=== PATIENT | female | born 1990 | race Caucasian/White ===

== ENCOUNTER 2017-10-25 22:39 | Emergency (ER) | payer MEDICAID, OTHER ==
[~2017-10-25] VITALS: Ht 165.1 cm; Wt 63.0 kg
[2017-10-25 23:19] VITALS: BP 158/102; PULSE 67; RESP 20; TEMP 98.3; O2SAT 97
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
[2017-10-26] MEDS ORDERED: ROBA500T PO (00:55)
[2017-10-26] MEDS ORDERED: IBUP1TAB7 PO (00:55)
[2017-10-26] MEDS ORDERED: ORPHENADRINE INJ 60 MG/2 ML AMP IM ONE (01:00)
[2017-10-26] MEDS ORDERED: KETOROLAC TROMETHAMINE 60 MG/2 ML (IM) VIAL IM ONE (01:00)
== END 2017-10-26 01:17 | disposition home or self-care (01) ==
LOC: NEPD 22:39
DX: S16.1XXA Strain of muscle, fascia and tendon at neck level, initial encounter (principal); V89.2XXA Person injured in unspecified motor-vehicle accident, traffic, initial encounter
CPT/HCPCS: 96372; 99283; J1885; J2360

== ENCOUNTER 2017-11-08 12:18 | Inpatient (IN) | payer SELFPAY ==
[2017-11-08] VITALS (7 sets, daily range): BP systolic 113–171; BP diastolic 58–99; PULSE 102–118; RESP 18–24; TEMP 98.8; O2SAT 100
[~2017-11-08] VITALS: Ht 162.6 cm; Wt 63.0 kg
[~2017-11-08 12:18] MED LIST: IBUP1TAB7 PO; ROBA500T PO
[2017-11-08] MEDS ORDERED: SODIUM CHLOR 0.9% 1000 ML INJ 1,000 ML IV ONE ×4 (12:25→13:30)
[2017-11-08] MEDS ORDERED: SODIUM CHLOR 0.9% 1000 ML INJ 1,000 ML IV SCH (12:29)
[2017-11-08] MEDS ORDERED: DEXT 5%-NACL 0.9% 1000 ML INJ 1,000 ML IV SCH (12:29)
[2017-11-08] MEDS ORDERED: SODIUM BICARBONATE 8.4% SOLN 50 MEQ/50 ML VIAL IV PUSH PRN ×4 (12:30→14:45)
[2017-11-08] MEDS ORDERED: SODIUM CHLORIDE 0.9% FLUSH 10 ML FLUSH IVF PRN (12:30)
[2017-11-08] MEDS ORDERED: INSULIN REGULAR (IV INFUSION) 100 UNITS in SODIUM CHLORIDE 0.9% INJ 99 ML IV PRN (12:30)
[2017-11-08] MEDS ORDERED: POTASSIUM CHLOR 20 MEQ PREMIX 100 ML IV PRN ×11 (12:30→14:45)
[2017-11-08] MEDS ORDERED: POTASSIUM CHLOR 40 MEQ PREMIX 100 ML IV PRN ×4 (12:30→14:45)
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
[2017-11-08 12:48] LABS: AUTOMATED NEUTROPHIL # 33.2 TH/MM3 (1.8-7.7); BASOPHIL # 0.1 TH/MM3 (0-0.2); BASOPHIL % 0.3 % (0.0-2.0); HEMATOCRIT 49.1 % (35.0-46.0); HEMOGLOBIN 15.8 GM/DL (11.6-15.3); LYMPH % 3.4 % (9.0-44.0); LYMPHOCYTE # 1.3 TH/MM3 (1.0-4.8); MEAN CELL VOLUME 96.7 FL (80.0-100.0); MEAN CORPUSCULAR HGB CONC 32.1 % (32.0-36.0); MONO % 8.8 % (0.0-8.0); MONOCYTE # 3.3 TH/MM3 (0-0.9); NEUT % 87.5 % (16.0-70.0); PLATELET COUNT 324 TH/MM3 (150-450); RED BLOOD COUNT 5.08 MIL/MM3 (4.00-5.30); RED CELL DISTRIBUTION WIDTH 12.9 % (11.6-17.2); WHITE BLOOD COUNT 37.9 TH/MM3 (4.0-11.0)
[2017-11-08 13:06] LABS: ALBUMIN 4.5 GM/DL (3.4-5.0); ALT (GPT) 27 U/L (10-53); AST (GOT) 12 U/L (15-37); BICARBONATE LESS THAN 5.0 MEQ/L (21.0-32.0); BLOOD UREA NITROGEN 18 MG/DL (7-18); CHLORIDE 95 MEQ/L (98-107); CREATININE 1.65 MG/DL (0.50-1.00); GLOMERULAR FILTRATION RATE 37 ML/MIN (>89); SODIUM (NA) 127 MEQ/L (136-145)
[2017-11-08 13:18] LABS: ALKALINE PHOSPHATASE 97 U/L (45-117); TOTAL BILIRUBIN ADULT 0.4 MG/DL (0.2-1.0); TOTAL PROTEIN 8.5 GM/DL (6.4-8.2); TROPONIN I LESS THAN 0.02 NG/ML (0.02-0.05)
[2017-11-08 13:20] LABS: BANDS 3 % (0-6); LYMPHOCYTES 5 % (9-44); MONOCYTES 6 % (0-8); NEUTROPHIL # MANUAL DIFF 33.7 TH/MM3 (1.8-7.7); POLYS (SEG NEUTROPHILS) 86 % (16-70)
[2017-11-08 13:36] LABS: GLUCOSE,RANDOM 666 MG/DL (74-106)
[2017-11-08 14:23] LABS: BACTERIA, URINE RARE /hpf; BILIRUBIN, URINE NEG (NEG); BLOOD, URINE MOD (NEG); GLUCOSE,URINE >=500 mg/dL (NEG); HYALINE CAST, URINE 1 /lpf (RARE); KETONE, URINE 80 OR GREATER mg/dL (NEG); MUCUS URINE FEW /lpf (OCC); NITRITE,URINE NEG (NEG); SQUAMOUS EPITHELIAL CELL URINE <1 /hpf (0-5); URINE COLOR YELLOW (YELLW/STRAW); URINE LEUKOCYTE ESTERASE NEG (NEG)
[2017-11-08] MEDS: SODIUM CHLOR 0.9% 1000 ML INJ 1,000 ML IV SCH ×3 (14:43→22:43)
[2017-11-08] MEDS ORDERED: NURSING INFORMATION XX SCH ×2 (14:45→15:00)
[2017-11-08] MEDS ORDERED: CHLORHEXIDINE GLUCONATE 2 % 1 PACK (2 CLOTHS) TOP PRN (14:45)
--- NOTE | 2017-11-08 14:45 | RADRPT ---
EXAM DATE: 11/08/2017 2:05 PM EDT AGE/SEX: 27 years / Female INDICATIONS: Shortness of breath. CLINICAL DATA: This is the patient's initial encounter. Patient reports that signs and symptoms have been present for 1 day and indicates a pain score of 0/10. MEDICAL/SURGICAL HISTORY: None. None. COMPARISON: No prior exams available for comparison. FINDINGS: A single AP view of the chest demonstrates the lungs to be symmetrically aerated without evidence of mass, infiltrate or effusion. The cardiomediastinal contours are unremarkable. Osseous structures a re intact. CONCLUSION: No acute cardiopulmonary findings. Electronically signed by: Erich Wright MD 11/08/2017 2:44 PM EDT
[2017-11-08] MEDS ORDERED: RESP: ALBUTEROL 2.5 MG/IPRATROPIUM 0.5 MG NEB (PRN) INH (15:00)
[2017-11-08] MEDS ORDERED: MAGNESIUM HYDROXIDE SUSP 30 ML CUP PO PRN (15:00)
[2017-11-08] MEDS ORDERED: BISACODYL 10 MG SUPP RECTAL PRN (15:00)
[2017-11-08] MEDS ORDERED: INSULIN HUMAN REGULAR 1,000 UNITS/10 ML VIAL IV PUSH ONE ×2 (15:00→15:30)
[2017-11-08] MEDS ORDERED: SENNOSIDES 8.6 MG TAB PO PRN (15:00)
[2017-11-08] MEDS ORDERED: ACETAMINOPHEN 325 MG TAB PO PRN (15:00)
[2017-11-08] MEDS ORDERED: LACTULOSE SYRUP 20 GM/30 ML CUP PO PRN (15:00)
[2017-11-08] MEDS: INSULIN REGULAR (IV INFUSION) 100 UNITS in SODIUM CHLORIDE 0.9% INJ 99 ML IV PRN (15:14)
--- NOTE | 2017-11-08 15:40 | EKG ---
Date Performed: 11/08/2017 Time Performed: 11:17:58 PTAGE: 27 years EKG: SINUS TACHYCARDIA POSSIBLE LEFT ATRIAL ENLARGEMENT ABNORMAL RHYTHM ECG NO PREVIOUS TRACING DOCTOR: Morales Juarez Interpretating Date/Time 11/08/2017 15:38:51
--- NOTE | 2017-11-08 16:26 | HHI.HP ---
HPI Service Critical Care Medicine Primary Care Physician No Primary Care Physician Admission Diagnosis DKA Diagnosis: Travel History International Travel<30 Days: No Contact w/Intl Traveler <30 Da: No Traveled to Known Affected Are: No History of Present Illness HPI This is a 27-year-old female that presented to the ED with altered mental status. Laboratory and imaging studies revealed a significant leukocytosis and a beta hydroxybutyrate elevation of 10.93 the patient's glucose level was noted to be 444 and lactate level of 4.9.. The patient was bolused in the ED with 4 L of normal saline. An insulin drip was initiated in the ED.Upon my evaluation of the patient, easily arousable, opening eyes tracking but not responding to questions. Family at bedside,no history of diabetes per their report. The patient was admitted to ICU. ABG is pending. History PFSH Past Medical History Immunizations Current: Yes ?: Unknown Social History Alcohol Use: No Tobacco Use: No Substance Use: No Allergies-Medications Allergies-Medications (Allergen,Severity, Reaction): Coded Allergies: bee venom protein (honey bee) (Verified Allergy, Severe, Anaphylaxis, 10/25) Reported Meds & Prescriptions Reported Meds & Active Scripts Active Ibuprofen 800 Mg Tab 800 Mg PO Q8H PRN Robaxin (Methocarbamol) 500 Mg Tab 500 Mg PO QID PRN Physical Exam Vital Signs Vital Signs Date Time Temp Pulse Resp B/P (MAP) Pulse Ox O2 Delivery O2 Flow Rate FiO2 11/08/17 15:51 110 24 113/58 (76) 100 Nasal Cannula 2.00 11/08/17 13:33 102 24 128/68 (88) 100 Nasal Cannula 2.00 11/08/17 12:32 100 Room Air 11/08/17 12:28 109 98 11/08/17 12:20 118 18 171/99 (123) 100 Laboratory Laboratory Tests Test 11/08/17 12:25 11/08/17 12:38 11/08/17 15:04 White Blood Count 37.9 Red Blood Count 5.08 Hemoglobin 15.8 Hematocrit 49.1 Mean Corpuscular Volume 96.7 Mean Corpuscular Hemoglobin 31.0 Mean Corpuscular Hemoglobin Concent 32.1 Red Cell Distribution Width 12.9 Platelet Count 324 Mean Platelet Volume 11.0 Neutrophils (%) (Auto) 87.5 Lymphocytes (%) (Auto) 3.4 Monocytes (%) (Auto) 8.8 Eosinophils (%) (Auto) 0.0 Basophils (%) (Auto) 0.3 Neutrophils # (Auto) 33.2 Lymphocytes # (Auto) 1.3 Monocytes # (Auto) 3.3 Eosinophils # (Auto) 0.0 Basophils # (Auto) 0.1 CBC Comment AUTO DIFF Differential Total Cells Counted 100 Neutrophils % (Manual) 86 Band Neutrophils % 3 Lymphocytes % 5 Monocytes % 6 Neutrophils # (Manual) 33.7 Differential Comment FINAL DIFF MANUAL Platelet Estimate NORMAL Platelet Morphology Comment NORMAL Blood Urea Nitrogen 18 Creatinine 1.65 Random Glucose 666 Total Protein 8.5 Albumin 4.5 Calcium Level 8.0 Alkaline Phosphatase 97 Aspartate Amino Transf (AST/SGOT) 12 Alanine Aminotransferase (ALT/SGPT) 27 Total Bilirubin 0.4 Sodium Level 127 Potassium Level 4.1 Chloride Level 95 Carbon Dioxide Level LESS THAN 5.0 Anion Gap 27 Estimat Glomerular Filtration Rate 37 Troponin I LESS THAN 0.02 B-Hydroxybutyrate 10.93 Urine Color YELLOW Urine Turbidity HAZY Urine pH 5.0 Urine Specific [place] 1.023 Urine Protein 100 Urine Glucose (UA) >=500 Urine Ketones 80 OR GREATER Urine Occult Blood MOD Urine Nitrite NEG Urine Bilirubin NEG Urine Leukocyte Esterase NEG Urine RBC 1 Urine WBC LESS THAN 1 Urine Squamous Epithelial Cells <1 Urine Bacteria RARE Urine Hyaline Casts 1 Urine Mucus FEW Microscopic Urinalysis Comment CULT NOT INDICATED Lactic Acid Level 4.9 Blood Gas Puncture Site RT RADIAL Blood Gas Patient Temperature 98.6 Blood Gas HCO3 1 Blood Gas Base Excess -29.9 Blood Gas Oxygen Saturation 97 Arterial Blood pH 6.83 Arterial Blood Partial Pressure CO2 8 Arterial Blood Partial Pressure O2 163 Arterial Blood Oxygen Content 19.3 Arterial Blood Carboxyhemoglobin 0.6 Arterial Blood Methemoglobin 0.9 Blood Gas Hemoglobin 14.0 Oxygen Delivery Device NASAL CANNULA Blood Gas Liter Flow 2 Date/Time Source Procedure Growth Status 11/08/17 12:35 Blood Peripheral Aerobic Blood Culture Pending Received 11/08/17 12:35 Blood Peripheral Anaerobic Blood Culture Pending Received Result Diagram: 11/08/17 1225 11/08/17 1225 Imaging Last Impressions Chest X-Ray 11/08/17 1225 Signed Impressions: CONCLUSION: No acute cardiopulmonary findings. Septic Shock Reassessment Septic shock perfusion: reassessment completed Caprini VTE Risk Assessment Caprini VTE Risk Assessment: Mod/High Risk (score >= 2) Caprini Risk Assessment Model Point Value = 1 Point Value = 2 Point Value = 3 Point Value = 5 Age 41-60 Minor surgery BMI > 25 kg/m2 Swollen legs Varicose veins or History of unexplained or recurrent spontaneous Oral contraceptives or hormone replacement Sepsis (< 1 month) Serious lung disease, including pneumonia (< 1 month) Abnormal pulmonary function Acute myocardial infarction Congestive heart failure (< 1 month) History of inflammatory bowel disease Medical patient at bed rest Age 61-74 Arthroscopic surgery Major open surgery (> 45 min) Laparoscopic surgery (> 45 min) Malignancy Confined to bed (> 72 hours) Immobilizing plaster cast Central venous access Age >= 75 History of VTE Family history of VTE Factor V Leiden Prothrombin [id number] Lupus anticoagulant Anticardiolipin antibodies Elevated serum homocysteine Heparin-induced thrombocytopenia Other congenital or acquired thrombophilia Stroke (< 1 month) Elective arthroplasty Hip, pelvis, or leg fracture Acute spinal cord injury (< 1 month) Prophylaxis Regimen Total Risk Factor Score Risk Level Prophylaxis Regimen 0-1 Low Early ambulation 2 Moderate Order ONE of the following: *Sequential Compression Device (SCD) *Heparin 5000 units SQ BID 3-4 Higher Order ONE of the following medications: *Heparin 5000 units SQ TID *Enoxaparin/Lovenox 40 mg SQ daily (WT < 150 kg, CrCl > 30 mL/min) *Enoxaparin/Lovenox 30 mg SQ daily (WT < 150 kg, CrCl > 10-29 mL/min) *Enoxaparin/Lovenox 30 mg SQ BID (WT < 150 kg, CrCl > 30 mL/min) AND/OR *Sequential Compression Device (SCD) 5 or more Highest Order ONE of the following medications: *Heparin 5000 units SQ TID (Preferred with Epidurals) *Enoxaparin/Lovenox 40 mg SQ daily (WT < 150 kg, CrCl > 30 mL/min) *Enoxaparin/Lovenox 30 mg SQ daily (WT < 150 kg, CrCl > 10-29 mL/min) *Enoxaparin/Lovenox 30 mg SQ BID (WT < 150 kg, CrCl > 30 mL/min) AND *Sequential Compression Device (SCD) Assessment and Plan Problem List: (1) Leukocytosis ICD Code: D72.829 - Elevated white blood cell count, unspecified (2) Diabetic ketoacidosis ICD Code: E13.10 - Other specified diabetes mellitus with ketoacidosis without coma Status: Acute Assessment and Plan Assessment This is a 27-year-old female DKA coma, with severe electrolyte abnormalities. Admit to ICU Plan by systems: Neurologic: Metabolic encephalopathy Neuro checks per ICU protocol Avoid sedatives Tylenol 650 mg every 6 hours for pain and/or temperature greater than 101 Respiratory: Maintain O2 saturation greater than 92% O2 1-4 LPM Duo nebs every 4 hours as needed for wheezing Cardiovascular: Telemetry sinus rhythm Maintain map greater than 65mmHG Renal: Maintain Siddiqi catheter -- Strict I/Os FEN/GI: Maintain n.p.o. status Obtain hemoglobin A1c Normal Saline 200cc/hr Monitor BMP q 4hr per protocoll Electrolyte replacement per DKA protocol Heme/ID: Leukocytosis Obtain blood ,urine, sputum culture No obvious signs of infection upon examination, but multiple carious dentition Endocrine: DKA Severe Metabolic Acidosis 2/2 DKA Bolus 5 units regular insulin 1 Initiate insulin infusion per DKA protocol ABG 6.83/8/163/ 1/-29.9- Bolused 100meq NaHCO3, Initiate Sodium Bicarbonate infusion @ 75cc/hr Prophylaxis: GI Prophylaxis Famotidine 20mg BID DVT Prophylaxis -- SCDs Heparin 5000u BID Lines: PIV's x 2. Central line if indicated Dispo: my billing statement This patient remains critically ill with one or more organ systems which are or may become a threat to life. I have spent in excess of 49 minutes discontinuously in the care and management of this patient. This time is exclusive of procedures, and includes, but is not limited to, evaluation of the patient, review of the medical record, discussions with family, consultants, nursing staff, or respiratory therapy, and documentation in the medical record. Code Status Full Discussed Condition With , ED RN at bedside and family Problem Qualifiers (1) Diabetic ketoacidosis: Qualified Codes: E10.11 - Type 1 diabetes mellitus with ketoacidosis with coma Estrella Vasques MD Nov 08, 2017 16:26
[2017-11-08] MEDS: SODIUM BICARBONATE 8.4% INJ 150 MEQ in SODIUM CHLOR 0.45% 1000 ML INJ 850 ML IV SCH ×2 (16:51→19:37)
[2017-11-08] MEDS: POTASSIUM CHLOR 20 MEQ PREMIX 100 ML IV PRN ×3 (16:55→22:01)
[2017-11-08] MEDS: DEXT 5%-NACL 0.9% 1000 ML INJ 1,000 ML IV SCH (20:37)
[2017-11-08 21:24] LABS: BICARBONATE LESS THAN 5.0 MEQ/L (21.0-32.0); BLOOD UREA NITROGEN 15 MG/DL (7-18); CALCIUM 7.4 MG/DL (8.5-10.1); CHLORIDE 113 MEQ/L (98-107); GLOMERULAR FILTRATION RATE 53 ML/MIN (>89); GLUCOSE,RANDOM 255 MG/DL (74-106); MAGNESIUM 1.9 MG/DL (1.5-2.5); PHOSPHORUS 1.3 MG/DL (2.5-4.9); SODIUM (NA) 141 MEQ/L (136-145)
[2017-11-08 21:43] LABS: CALCIUM-PROTEIN CORRECTED 7.6 MG/DL (8.5-10.1); TOTAL PROTEIN 6.8 GM/DL (6.4-8.2)
[2017-11-08] MEDS: FAMOTIDINE 20 MG/2 ML VIAL IV PUSH SCH (22:07)
[2017-11-08] MEDS: DOCUSATE SODIUM 50 MG/SENNA 8.6 MG TAB PO SCH (22:07)
[2017-11-09] VITALS (12 sets, daily range): BP systolic 118–138; BP diastolic 63–80; PULSE 92–104; RESP 18–24; TEMP 98.4–99.4; O2SAT 99–100
[2017-11-09] MEDS: SODIUM PHOSPHATE INJ 15 MMOL in SODIUM CHLORIDE 0.9% INJ 100 ML IV PRN ×2 (00:20→15:18)
[2017-11-09] MEDS: DEXT 5%-NACL 0.9% 1000 ML INJ 1,000 ML IV SCH ×4 (01:21→10:43)
[2017-11-09] MEDS: POTASSIUM CHLOR 20 MEQ PREMIX 100 ML IV PRN ×5 (01:59→11:24)
[2017-11-09 02:21] LABS: BICARBONATE 12.6 MEQ/L (21.0-32.0); BLOOD UREA NITROGEN 14 MG/DL (7-18); CALCIUM 7.1 MG/DL (8.5-10.1); CHLORIDE 117 MEQ/L (98-107); CREATININE 1.09 MG/DL (0.50-1.00); GLOMERULAR FILTRATION RATE 59 ML/MIN (>89); GLUCOSE,RANDOM 246 MG/DL (74-106); MAGNESIUM 1.4 MG/DL (1.5-2.5); PHOSPHORUS 0.3 MG/DL (2.5-4.9); SODIUM (NA) 144 MEQ/L (136-145)
[2017-11-09] MEDS: SODIUM CHLOR 0.9% 1000 ML INJ 1,000 ML IV SCH ×3 (02:43→10:43)
[2017-11-09 02:48] LABS: CALCIUM-PROTEIN CORRECTED 7.8 MG/DL (8.5-10.1); TOTAL PROTEIN 5.8 GM/DL (6.4-8.2)
[2017-11-09] MEDS: INSULIN REGULAR (IV INFUSION) 100 UNITS in SODIUM CHLORIDE 0.9% INJ 99 ML IV PRN (03:26)
[2017-11-09] MEDS: HEPARIN SODIUM - SQ 10,000 UNITS/ML VIAL SQ SCH ×3 (04:00→17:20)
[2017-11-09] MEDS: CHLORHEXIDINE GLUCONATE 2 % 1 PACK (2 CLOTHS) TOP SCH (04:00)
[2017-11-09] MEDS ORDERED: CHLORHEXIDINE GLUCONATE 2 % 1 PACK (2 CLOTHS) TOP SCH (04:00)
[2017-11-09] MEDS: MAGNESIUM SULFATE 1 GM PREMIX 100 ML IV SCH ×2 (04:01→06:49)
[2017-11-09 05:15] LABS: BICARBONATE 15.7 MEQ/L (21.0-32.0); CREATININE 1.14 MG/DL (0.50-1.00); MAGNESIUM 1.4 MG/DL (1.5-2.5); PHOSPHORUS 0.3 MG/DL (2.5-4.9)
[2017-11-09 05:35] LABS: CALCIUM-PROTEIN CORRECTED 7.8 MG/DL (8.5-10.1); TOTAL PROTEIN 5.5 GM/DL (6.4-8.2)
[2017-11-09] MEDS: SODIUM BICARBONATE 8.4% INJ 150 MEQ in SODIUM CHLOR 0.45% 1000 ML INJ 850 ML IV SCH (06:46)
[2017-11-09] MEDS: FAMOTIDINE 20 MG/2 ML VIAL IV PUSH SCH ×2 (09:00→20:26)
[2017-11-09] MEDS: DOCUSATE SODIUM 50 MG/SENNA 8.6 MG TAB PO SCH ×2 (09:00→20:21)
[2017-11-09] MEDS ORDERED: PADIMATE (CHAPSTICK) 4.5 GM TUBE TOPICAL PRN (10:30)
[2017-11-09 12:44] LABS: BICARBONATE 13.1 MEQ/L (21.0-32.0); CALCIUM 7.5 MG/DL (8.5-10.1); CREATININE 1.07 MG/DL (0.50-1.00); MAGNESIUM 2.2 MG/DL (1.5-2.5); PHOSPHORUS 0.2 MG/DL (2.5-4.9)
[2017-11-09 14:23] LABS: BICARBONATE 15.7 MEQ/L (21.0-32.0); CALCIUM 7.5 MG/DL (8.5-10.1); CREATININE 1.11 MG/DL (0.50-1.00)
[2017-11-09] MEDS ORDERED: INSULIN DETEMIR 100 UNITS/ML VIAL SQ SCH (15:00)
[2017-11-09] MEDS ORDERED: POTASSIUM CHLORIDE 25 MEQ EFFERVESCENT TAB PO ONE (15:00)
--- NOTE | 2017-11-09 15:10 | HHI.CCPN ---
Subjective Remarks/Hospital Course This is a 27-year-old female that presented to the ED with altered mental status. Laboratory and imaging studies revealed a significant leukocytosis and a beta hydroxybutyrate elevation of 10.93 the patient's glucose level was noted to be 444 and lactate level of 4.9.. The patient was bolused in the ED with 4 L of normal saline. An insulin drip was initiated in the ED.Upon my evaluation of the patient, easily arousable, opening eyes tracking but not responding to questions. Family at bedside,no history of diabetes per their report. The patient was admitted to ICU. ABG is pending. Subjective: 11/09: Late entry note . Patient seen at 740 am. Afebrile. The patient is alert and oriented 3. Anion gap now 11. Beta hydroxybutyrate now significantly decreased. Electrolytes currently being. Lactic acid has cleared. Plan to initiate Levemir 5u BID. No signs of infection, repeat CBC is pending. Objective Vital Signs Date Time Temp Pulse Resp B/P (MAP) Pulse Ox O2 Delivery O2 Flow Rate FiO2 11/09/17 06:00 97 11/09/17 04:00 98.6 24 132/76 (94) 100 11/08/17 21:31 Nasal Cannula 2.00 Intake and Output 11/09/17 11/09/17 11/09/17 07:59 15:59 23:59 Intake Total 3405 ml Output Total 2000 ml Balance 1405 ml Result Diagram: 11/08/17 1225 11/09/17 1340 Other Results Laboratory Tests Test 11/08/17 15:04 11/08/17 16:50 11/08/17 21:00 11/09/17 00:55 Blood Gas Puncture Site RT RADIAL LT RADIAL RT RADIAL RT RADIAL Blood Gas Patient Temperature 98.6 98.6 98.6 98.6 Blood Gas HCO3 1 mmol/L (22-26) 3 mmol/L (22-26) 5 mmol/L (22-26) 11 mmol/L (22-26) Blood Gas Base Excess -29.9 mmol/L (-2-2) -26.8 mmol/L (-2-2) -21.8 mmol/L (-2-2) -14.3 mmol/L (-2-2) Blood Gas Oxygen Saturation 97 % (90-100) 97 % (90-100) 97 % (90-100) 97 % ( 90-100) Arterial Blood pH 6.83 (7.380-7.420) 7.02 (7.380-7.420) 7.21 (7.380-7.420) 7.29 (7.380-7.420) Arterial Blood Partial Pressure CO2 8 mmHg (38-42) 11 mmHg (38-42) 13 mmHg (38-42) 24 mmHg (38-42) Arterial Blood Partial Pressure O2 163 mmHG (61-120) 158 mmHG (61-120) 170 mmHg (61-120) 157 mmHg (61-120) Arterial Blood Oxygen Content 19.3 Vol % (12.0-20.0) 18.9 Vol % (12.0-20.0) 17.7 Vol % (12.0-20.0) 16.7 Vol % (12.0-20.0) Arterial Blood Carboxyhemoglobin 0.6 % (0-4) 0.9 % (0-4) 1.0 % (0-4) 1.0 % (0-4) Arterial Blood Methemoglobin 0.9 % (0-2) 0.9 % (0-2) 1.7 % (0-2) 1.5 % (0-2) Blood Gas Hemoglobin 14.0 G/DL (12.0-16.0) 13.7 G/DL (12.0-16.0) 12.8 G/DL (12.0-16.0) 12.1 G/DL (12.0-16.0) Oxygen Delivery Device NASAL CANNULA NASAL CANNULA NASAL CANNULA NASAL CANNULA Blood Gas Liter Flow 2 L/M 4 L/M 3.5 L/M 2 L/M Test 11/09/17 03:55 Blood Gas Puncture Site RT RADIAL Blood Gas Patient Temperature 98.6 Blood Gas HCO3 14 mmol/L (22-26) Blood Gas Base Excess -10.5 mmol/L (-2-2) Blood Gas Oxygen Saturation 97 % (90-100) Arterial Blood pH 7.32 (7.380-7.420) Arterial Blood Partial Pressure CO2 29 mmHg (38-42) Arterial Blood Partial Pressure O2 155 mmHg (61-120) Arterial Blood Oxygen Content 15.9 Vol % (12.0-20.0) Arterial Blood Carboxyhemoglobin 1.0 % (0-4) Arterial Blood Methemoglobin 1.5 % (0-2) Blood Gas Hemoglobin 11.5 G/DL (12.0-16.0) Oxygen Delivery Device NASAL CANNULA Blood Gas Liter Flow 2 L/M Imaging Last Impressions Chest X-Ray 11/08/17 1225 Signed Impressions: CONCLUSION: No acute cardiopulmonary findings. A/P Problem List: (1) Leukocytosis ICD Code: D72.829 - Elevated white blood cell count, unspecified (2) Diabetic ketoacidosis ICD Code: E13.10 - Other specified diabetes mellitus with ketoacidosis without coma Status: Acute Assessment and Plan Plan by systems: Neurologic: Metabolic encephalopathy-resolved Neuro checks per ICU protocol Avoid sedatives Tylenol 650 mg every 6 hours for pain and/or temperature greater than 101 Respiratory: Maintain O2 saturation greater than 92% O2 1-4 LPM Duo nebs 4 hours as needed for wheezing Cardiovascular: Telemetry sinus rhythm Maintain map greater than 65mmHG Renal: Maintain Siddiqi catheter -- Strict I/Os FEN/GI: Begin 1800 jc diabetic diet Obtain hemoglobin A1c Monitor BMP q 4hr per protocol Electrolyte replacement per DKA protocol Heme/ID: Leukocytosis Obtain blood ,urine, sputum culture No obvious signs of infection upon examination, but multiple carious dentition Follow-up CBC Endocrine: DKA Severe Metabolic Acidosis 2/2 DKA Begin Levemir 5units BID Transition from DKA protocol, to SSI Prophylaxis: GI Prophylaxis Famotidine 20mg BID DVT Prophylaxis -- SCDs Heparin 5000u BID Lines: PIV's x 2. Central line if indicated Dispo: my billing statement This patient remains critically ill with one or more organ systems which are or may become a threat to life. I have spent in excess of 30 minutes discontinuously in the care and management of this patient. This time is exclusive of procedures, and includes, but is not limited to, evaluation of the patient, review of the medical record, discussions with family, consultants, nursing staff, or respiratory therapy, and documentation in the medical record. Physician Estrella Vasques Problem Qualifiers (1) Diabetic ketoacidosis: Qualified Codes: E10.11 - Type 1 diabetes mellitus with ketoacidosis with coma Estrella Vasques MD Nov 09, 2017 15:10
[2017-11-09 15:56] LABS: HEMOGLOBIN A1C 13.6 % (4.3-6.0)
[2017-11-09] MEDS ORDERED: GLUCAGON 1 MG/ML VIAL OTHER PRN (16:15)
[2017-11-09] MEDS ORDERED: DC Insulin drip 2 hrs post basal insulin dose ONE (16:15)
[2017-11-09] MEDS ORDERED: DC previous DKA orders (HMC 1917) ONE (16:15)
[2017-11-09] MEDS ORDERED: DEXTROSE 50% IN WATER 50 ML VIAL(D50) IV PUSH PRN (16:15)
[2017-11-09 16:44] LABS: AUTOMATED NEUTROPHIL # 25.9 TH/MM3 (1.8-7.7); BASOPHIL % 0.1 % (0.0-2.0); HEMATOCRIT 40.1 % (35.0-46.0); HEMOGLOBIN 14.1 GM/DL (11.6-15.3); LYMPH % 3.3 % (9.0-44.0); LYMPHOCYTE # 0.9 TH/MM3 (1.0-4.8); MEAN CELL VOLUME 88.3 FL (80.0-100.0); MEAN CORPUSCULAR HEMOGLOBIN 31.1 PG (27.0-34.0); MEAN CORPUSCULAR HGB CONC 35.2 % (32.0-36.0); MEAN PLATELET VOLUME 10.3 FL (7.0-11.0); MONO % 6.7 % (0.0-8.0); MONOCYTE # 1.9 TH/MM3 (0-0.9); NEUT % 89.9 % (16.0-70.0); PLATELET COUNT 180 TH/MM3 (150-450); RED BLOOD COUNT 4.54 MIL/MM3 (4.00-5.30); RED CELL DISTRIBUTION WIDTH 12.8 % (11.6-17.2); WHITE BLOOD COUNT 28.8 TH/MM3 (4.0-11.0)
[2017-11-09] MEDS: INSULIN ASPART SUPPLEMENTAL SCALE SQ SCH ×2 (17:21→20:21)
--- NOTE | 2017-11-09 19:19 | RADRPT ---
EXAM DATE: 11/09/2017 6:37 PM EDT AGE/SEX: 27 years / Female INDICATIONS: Elevated white count; DKA. CLINICAL DATA: This is the patient's initial encounter. Patient reports that signs and symptoms have been present for 1 day and indicates a pain score of 0/10. MEDICAL/SURGICAL HISTORY: Diabetes. None. Angioplasty. RADIATION DOSE: 56.76 CTDI (mGy) COMPARISON: No prior exams available for comparison. TECHNIQUE: Contiguous images in the axial and coronal planes were obtained using helical multirow de tector technique. Using automated exposure control and adjustment of the mA and/or kV according to p atient size, radiation dose was kept as low as reasonably achievable to obtain optimal diagnostic ana lity images. FINDINGS: No acute facial bone fracture is identified. Visualized paranasal sinuses are clear. Temporomandibula r joints are intact. Parotid and submandibular glands are symmetric. No abnormal fluid collections. CONCLUSION: 1. No acute findings. Electronically signed by: Michael Downing MD 11/09/2017 7:18 PM EDT
--- NOTE | 2017-11-09 19:22 | RADRPT ---
EXAM DATE: 11/09/2017 7:03 PM EDT AGE/SEX: 27 years / Female INDICATIONS: Elevated white count on patient in DKA; rule out infection CLINICAL DATA: This is the patient's initial encounter. Patient reports that signs and symptoms have been present for 1 day and indicates a pain score of 0/10. MEDICAL/SURGICAL HISTORY: Diabetes. None. RADIATION DOSE: 8.99 CTDI (mGy) COMPARISON: No prior exams available for comparison. TECHNIQUE: Multiple contiguous axial images were obtained through the abdomen. Images were obtained using multiple row detector helical technique. Using dose reduction techniques, radiation dose was ke pt as low as reasonably achievable to obtain optimal diagnostic quality images. FINDINGS: There are small bilateral pleural effusions and subsegmental basilar airspace disease bilaterally. No acute findings in the liver, spleen, adrenals, kidneys or pancreas. No calcified gallstones or polly iary ductal dilatation. There is mild constipation. Mild anasarca. Siddiqi catheter present in the bladder. 2.6 cm right-sided adnexal cyst. CONCLUSION: 1. No acute findings within the abdomen. Small bilateral pleural effusions with basilar airspace dis ease which may represent pneumonia. 2. Mild anasarca. Mild constipation. Siddiqi catheter in bladder. 2.6 cm right adnexal cyst. Electronically signed by: Michael Downing MD 11/09/2017 7:21 PM EDT
[2017-11-09 20:04] LABS: BICARBONATE 10.7 MEQ/L (21.0-32.0); CREATININE 1.15 MG/DL (0.50-1.00)
[2017-11-09] MEDS: PIPERACIL-TAZO 4.5 GM PREMIX 100 ML IV SCH (21:56)
[2017-11-09] MEDS: AZITHROMYCIN INJ 500 MG in SODIUM CHLOR 0.9% 250 ML INJ 250 ML IV SCH (22:37)
[2017-11-10] VITALS (14 sets, daily range): BP systolic 116–136; BP diastolic 66–73; PULSE 86–102; RESP 16–19; TEMP 97.6–98.9; O2SAT 99–100
[2017-11-10] MEDS: CHLORHEXIDINE GLUCONATE 2 % 1 PACK (2 CLOTHS) TOP SCH (04:00)
[2017-11-10] MEDS: PIPERACIL-TAZO 4.5 GM PREMIX 100 ML IV SCH ×4 (04:15→21:15)
[2017-11-10] MEDS: POTASSIUM CHLOR 20 MEQ PREMIX 100 ML IV PRN (04:16)
[2017-11-10] MEDS: HEPARIN SODIUM - SQ 10,000 UNITS/ML VIAL SQ SCH ×2 (04:16→14:25)
[2017-11-10 05:59] LABS: AUTOMATED NEUTROPHIL # 12.8 TH/MM3 (1.8-7.7); BASOPHIL % 0.1 % (0.0-2.0); EOSINOPHIL % 0.2 % (0.0-4.0); HEMATOCRIT 29.6 % (35.0-46.0); HEMOGLOBIN 10.6 GM/DL (11.6-15.3); LYMPH % 11.6 % (9.0-44.0); LYMPHOCYTE # 1.9 TH/MM3 (1.0-4.8); MEAN CELL VOLUME 88.2 FL (80.0-100.0); MEAN CORPUSCULAR HEMOGLOBIN 31.6 PG (27.0-34.0); MEAN CORPUSCULAR HGB CONC 35.8 % (32.0-36.0); MEAN PLATELET VOLUME 10.2 FL (7.0-11.0); MONO % 8.6 % (0.0-8.0); MONOCYTE # 1.4 TH/MM3 (0-0.9); NEUT % 79.5 % (16.0-70.0); PLATELET COUNT 120 TH/MM3 (150-450); RED BLOOD COUNT 3.36 MIL/MM3 (4.00-5.30); RED CELL DISTRIBUTION WIDTH 12.9 % (11.6-17.2)
[2017-11-10 06:42] LABS: BICARBONATE 14.7 MEQ/L (21.0-32.0); CALCIUM 7.5 MG/DL (8.5-10.1); CREATININE 1.22 MG/DL (0.50-1.00); MAGNESIUM 2.1 MG/DL (1.5-2.5)
[2017-11-10] MEDS ORDERED: INSULIN DETEMIR 100 UNITS/ML VIAL SQ SCH (09:00)
[2017-11-10] MEDS: INSULIN ASPART SUPPLEMENTAL SCALE SQ SCH ×4 (09:23→21:15)
[2017-11-10] MEDS: DOCUSATE SODIUM 50 MG/SENNA 8.6 MG TAB PO SCH ×2 (10:42→21:13)
[2017-11-10] MEDS: FAMOTIDINE 20 MG/2 ML VIAL IV PUSH SCH ×2 (10:42→21:13)
[2017-11-10] MEDS ORDERED: POTASSIUM CHLORIDE 25 MEQ EFFERVESCENT TAB PO PRN (13:00)
[2017-11-10] MEDS ORDERED: MAGNESIUM SULFATE INJ 4 GM in SODIUM CHLORIDE 0.9% INJ 92 ML IV PRN (13:00)
[2017-11-10] MEDS ORDERED: POTASSIUM PHOSPHATE MONOBASIC 500 MG TAB PO PRN (13:00)
[2017-11-10] MEDS ORDERED: POTASSIUM PHOSPHATE MONOBASIC 500 MG TAB PO/TUBE PRN (13:00)
[2017-11-10] MEDS ORDERED: MAGNESIUM SULFATE INJ 2 GM in SODIUM CHLORIDE 0.9% INJ 96 ML IV PRN (13:00)
[2017-11-10] MEDS ORDERED: POTASSIUM PHOSPHATE INJ 30 MMOL in SODIUM CHLOR 0.9% 250 ML INJ 250 ML IV PRN (13:00)
[2017-11-10] MEDS ORDERED: POTASSIUM CHLOR 40 MEQ PREMIX 100 ML IV PRN ×2 (13:00)
[2017-11-10] MEDS ORDERED: MAGNESIUM OXIDE 400 MG TAB PO PRN (13:00)
[2017-11-10] MEDS ORDERED: SODIUM PHOSPHATE INJ 30 MMOL in SODIUM CHLOR 0.9% 250 ML INJ 240 ML IV PRN (13:00)
[2017-11-10] MEDS ORDERED: LACTATED RINGER'S 1000 ML INJ 1,000 ML IV ONE (13:00)
[2017-11-10] MEDS ORDERED: POTASSIUM CHLOR 20 MEQ PREMIX 100 ML IV PRN ×2 (13:00)
--- NOTE | 2017-11-10 13:02 | HHI.CCPN ---
Subjective Remarks/Hospital Course This is a 27-year-old female that presented to the ED with altered mental status. Laboratory and imaging studies revealed a significant leukocytosis and a beta hydroxybutyrate elevation of 10.93 the patient's glucose level was noted to be 444 and lactate level of 4.9.. The patient was bolused in the ED with 4 L of normal saline. An insulin drip was initiated in the ED.Upon my evaluation of the patient, easily arousable, opening eyes tracking but not responding to questions. Family at bedside,no history of diabetes per their report. The patient was admitted to ICU. ABG is pending. Subjective: 11/09: Late entry note . Patient seen at 740 am. Afebrile. The patient is alert and oriented 3. Anion gap now 11. Beta hydroxybutyrate now significantly decreased. Electrolytes currently being. Lactic acid has cleared. Plan to initiate Levemir 5u BID. No signs of infection, repeat CBC is pending. 11/10: gap closing. doing better. tolerating diet. K persistently low. Objective Vital Signs Date Time Temp Pulse Resp B/P (MAP) Pulse Ox O2 Delivery O2 Flow Rate FiO2 11/10/17 09:27 100 Nasal Cannula 2.00 11/10/17 06:00 102 11/10/17 04:00 98.5 18 116/71 (86) Intake and Output 11/10/17 11/10/17 11/11/17 08:00 16:00 00:00 Intake Total 400 ml Output Total 550 ml Balance -150 ml Result Diagram: 11/10/17 0506 11/10/17 0506 Other Results Laboratory Tests Test 11/09/17 14:59 Blood Gas Puncture Site RT RADIAL Blood Gas Patient Temperature 98.6 Blood Gas HCO3 12 mmol/L (22-26) Blood Gas Base Excess -13.2 mmol/L (-2-2) Blood Gas Oxygen Saturation 97 % (90-100) Arterial Blood pH 7.34 (7.380-7.420) Arterial Blood Partial Pressure CO2 22 mmHg (38-42) Arterial Blood Partial Pressure O2 152 mmHg (61-120) Arterial Blood Oxygen Content 16.0 Vol % (12.0-20.0) Arterial Blood Carboxyhemoglobin 0.8 % (0-4) Arterial Blood Methemoglobin 1.5 % (0-2) Blood Gas Hemoglobin 11.6 G/DL (12.0-16.0) Oxygen Delivery Device NASAL CANNULA Blood Gas Liter Flow 2 L/M Imaging Last Impressions Chest X-Ray 11/08/17 1225 Signed Impressions: CONCLUSION: No acute cardiopulmonary findings. Objective Remarks gen: awake, alert, no acute distress heent: perrl. mmm. nc. at. neck: trachea midline. no jvd. chest: unlabored. room air. equal chest rise. cv: normal rate, regular rhythm. sinus. abd: soft, nontender, nondistended. no guarding. extr: no edema. distal pulses 2+. neuro: RASS 0. no focal deficits. A/P Problem List: (1) Leukocytosis ICD Code: D72.829 - Elevated white blood cell count, unspecified (2) Diabetic ketoacidosis ICD Code: E13.10 - Other specified diabetes mellitus with ketoacidosis without coma Status: Acute Assessment and Plan Assessment This is a 27-year-old female DKA coma, with severe electrolyte abnormalities. clinically improving. likely stable to transfer out of ICU. will recheck BMP later today. Plan by systems: Neurologic: Metabolic encephalopathy Neuro checks per ICU protocol Avoid sedatives Tylenol 650 mg every 6 hours for pain and/or temperature greater than 101 Respiratory: Maintain O2 saturation greater than 92% O2 1-4 LPM Duo nebs every 4 hours as needed for wheezing Cardiovascular: Telemetry sinus rhythm Maintain map greater than 65mmHG Renal: d/c mary ellen. -- Strict I/Os FEN/GI: diabetic diet. Obtain hemoglobin A1c Normal Saline 200cc/hr Monitor BMP q 4hr per protocoll Electrolyte replacement per DKA protocol Heme/ID: Leukocytosis Obtain blood ,urine, sputum culture No obvious signs of infection upon examination, but multiple carious dentition Endocrine: DKA Severe Metabolic Acidosis 2/2 DKA- resolving. SQ insulin Levemir Prophylaxis: GI Prophylaxis Famotidine 20mg BID DVT Prophylaxis -- SCDs Heparin 5000u BID Lines: PIV's x 2. Dispo: if remains stable and repeat bmp stable this afternoon, can leave ICU. consult hospitalist service to assume care. Problem Qualifiers (1) Diabetic ketoacidosis: Qualified Codes: E10.11 - Type 1 diabetes mellitus with ketoacidosis with coma Sunday Paulson MD Nov 10, 2017 13:02
[2017-11-10 17:27] LABS: BICARBONATE 16.8 MEQ/L (21.0-32.0); CALCIUM 7.8 MG/DL (8.5-10.1); CREATININE 1.34 MG/DL (0.50-1.00)
[2017-11-10] MEDS ORDERED: INSULIN DETEMIR 100 UNITS/ML VIAL SQ ONE (21:00)
[2017-11-10] MEDS: AZITHROMYCIN INJ 500 MG in SODIUM CHLOR 0.9% 250 ML INJ 250 ML IV SCH (22:13)
[2017-11-11] VITALS (14 sets, daily range): BP systolic 115–133; BP diastolic 68–83; PULSE 77–97; RESP 16–60; TEMP 97.4–98.3; O2SAT 98–100
[2017-11-11] MEDS: CHLORHEXIDINE GLUCONATE 2 % 1 PACK (2 CLOTHS) TOP SCH (04:00)
[2017-11-11] MEDS: HEPARIN SODIUM - SQ 10,000 UNITS/ML VIAL SQ SCH ×2 (04:37→18:06)
[2017-11-11] MEDS: PIPERACIL-TAZO 4.5 GM PREMIX 100 ML IV SCH ×4 (04:37→21:20)
[2017-11-11] MEDS: INSULIN DETEMIR 100 UNITS/ML VIAL SQ SCH (09:00)
--- NOTE | 2017-11-11 09:29 | HHI.PR ---
Subjective Remarks Very pleasant 27-year-old female in bed appears in not acute distress. Family very supportive of bedside. Discussed with the patient and family at length all questions answered to the best of my ability. Patient is in bed says she feels much better she is awake and alert but her baseline mentation. No more nausea vomiting. Able to eat and keep down food. No diarrhea constipation. Has some abdominal cramps as she started her menstrual period. Taking Midol usually at home helps a lot. No fever or chills. Objective Vitals Vital Signs Date Time Temp Pulse Resp B/P (MAP) Pulse Ox O2 Delivery O2 Flow Rate FiO2 11/11/17 06:00 86 11/11/17 04:00 81 11/11/17 04:00 97.4 81 17 115/71 (86) 98 11/11/17 02:00 84 11/11/17 00:00 91 11/11/17 00:00 97.6 91 20 115/68 (84) 100 11/10/17 22:00 86 11/10/17 20:49 99 Nasal Cannula 21 11/10/17 20:00 93 11/10/17 20:00 97.6 93 19 124/72 (89) 100 11/10/17 18:00 89 11/10/17 16:00 91 11/10/17 16:00 97.6 91 19 136/66 (89) 100 11/10/17 14:00 94 11/10/17 12:00 98.7 99 18 124/72 (89) 99 11/10/17 12:00 99 11/10/17 10:00 94 11/10/17 09:27 100 Nasal Cannula 2.00 I/O 11/10/17 11/10/17 11/10/17 11/11/17 11/11/17 11/11/17 07:00 15:00 23:00 07:00 15:00 23:00 Intake Total 400 ml 200 ml 1800 ml 650 ml Output Total 550 ml 602 ml Balance -150 ml 200 ml 1800 ml 48 ml Intake Oral 400 ml 600 ml 300 ml IV Total 200 ml 1200 ml 350 ml Output Urine Total 550 ml 600 ml Stool Total 0 ml 2 ml # Voids 2 2 # Bowel Movements 0 1 2 Result Diagram: 11/10/17 0506 11/10/17 1638 Imaging Last Impressions Maxillofacial CT 11/09/17 0000 Signed Impressions: CONCLUSION: 1. No acute findings. Abdomen/Pelvis CT 11/09/17 0000 Signed Impressions: CONCLUSION: 1. No acute findings within the abdomen. Small bilateral pleural effusions wit h basilar airspace disease which may represent pneumonia. 2. Mild anasarca. Mild constipation. Hyde catheter in bladder. 2.6 cm right a dnexal cyst. Chest X-Ray 11/08/17 1225 Signed Impressions: CONCLUSION: No acute cardiopulmonary findings. Objective Remarks GENERAL: Very pleasant young female, appears in nad. CARDIOVASCULAR: Regular rate and rhythm. RESPIRATORY: No accessory muscle use. Clear to auscultation. Breath sounds equal bilaterally. GASTROINTESTINAL: Abdomen soft, non-tender, nondistended. Hepatic and splenic margins not palpable. MUSCULOSKELETAL: Extremities without clubbing, cyanosis, or edema. No obvious deformities. NEUROLOGICAL: Awake and alert. No obvious cranial nerve deficits. Motor grossly within normal limits. Five out of 5 muscle strength in the arms and legs. Normal speech. PSYCHIATRIC: Appropriate mood and affect; insight and judgment normal. A/P Assessment and Plan This is a 27-year-old female DKA coma, with severe electrolyte abnormalities. Clinically improved Neuro Metabolic encephalopathy. Resolved Neuro checks Avoid sedatives Tylenol 650 mg every 6 hours for pain and/or temperature greater than 101 Respiratory: Maintain O2 saturation greater than 92% O2 1-4 LPM Duo nebs every 4 hours as needed for wheezing Cardiovascular: Telemetry sinus rhythm Maintain map greater than 65mmHG Renal: d/c hyde. -- Strict I/Os FEN/GI: diabetic diet. Obtain hemoglobin A1c Normal Saline 200cc/hr Monitor BMP q 4hr per protocoll Electrolyte replacement per DKA protocol Heme/ID: Leukocytosis Obtain blood ,urine, sputum culture No obvious signs of infection upon examination, but multiple carious dentition Endocrine: New-onset uncontrolled diabetes mellitus with hemoglobin A1c of 13 DKA Severe Metabolic Acidosis 2/2 DKA- resolving. Unable gap is closed SQ insulin Levemir ems educator Dietitian consult and also Prophylaxis: GI Prophylaxis Famotidine 20mg BID DVT Prophylaxis: SCDs / Heparin 5000u BID Lines:PIV's x 2. DC plan: DC when improved, tolerates food and lytes normal Migdalia Banks MD Nov 11, 2017 09:29
[2017-11-11] MEDS: FAMOTIDINE 20 MG/2 ML VIAL IV PUSH SCH ×2 (10:15→21:30)
[2017-11-11] MEDS: DOCUSATE SODIUM 50 MG/SENNA 8.6 MG TAB PO SCH ×2 (10:16→21:19)
[2017-11-11] MEDS: INSULIN ASPART SUPPLEMENTAL SCALE SQ SCH ×4 (10:25→21:19)
[2017-11-11] MEDS ORDERED: NAPROXEN 500 MG TAB PO ONE (11:00)
[2017-11-11] MEDS: NAPROXEN 250 MG TAB PO PRN ×2 (13:28→20:17)
[2017-11-11] MEDS: SODIUM CHLOR 0.45% 1000 ML INJ 1,000 ML IV SCH (18:07)
[2017-11-11] MEDS: AZITHROMYCIN INJ 500 MG in SODIUM CHLOR 0.9% 250 ML INJ 250 ML IV SCH (23:17)
[2017-11-12] VITALS (9 sets, daily range): BP systolic 119–131; BP diastolic 81–87; PULSE 71–93; RESP 22–115; TEMP 98.3–98.6; O2SAT 96–100
[2017-11-12] MEDS: NAPROXEN 250 MG TAB PO PRN (02:27)
[2017-11-12] MEDS: SODIUM CHLOR 0.45% 1000 ML INJ 1,000 ML IV SCH ×2 (03:55→06:38)
[2017-11-12] MEDS: CHLORHEXIDINE GLUCONATE 2 % 1 PACK (2 CLOTHS) TOP SCH (04:00)
[2017-11-12] MEDS: PIPERACIL-TAZO 4.5 GM PREMIX 100 ML IV SCH ×2 (04:30→08:29)
[2017-11-12] MEDS: HEPARIN SODIUM - SQ 10,000 UNITS/ML VIAL SQ SCH ×2 (04:30→16:00)
[2017-11-12] MEDS: DOCUSATE SODIUM 50 MG/SENNA 8.6 MG TAB PO SCH (08:29)
[2017-11-12] MEDS: INSULIN DETEMIR 100 UNITS/ML VIAL SQ SCH (08:29)
[2017-11-12] MEDS: FAMOTIDINE 20 MG/2 ML VIAL IV PUSH SCH (08:29)
[2017-11-12] MEDS: INSULIN ASPART SUPPLEMENTAL SCALE SQ SCH ×3 (08:29→16:45)
[2017-11-12] MEDS ORDERED: BIOM30MI (09:46)
[2017-11-12] MEDS ORDERED: GLUCTES12 (09:46)
[2017-11-12] MEDS ORDERED: GLUCKIT15 (09:46)
[2017-11-12] MEDS ORDERED: NOVO7030P2 SQ (09:46)
[2017-11-12] MEDS ORDERED: NOVOLOGP2 SQ (09:46)
[2017-11-12] MEDS ORDERED: INSU1MIS15 (09:46)
[2017-11-12] MEDS ORDERED: LANCETS1 MI1 (09:46)
--- NOTE | 2017-11-12 09:46 | HHI.DS ---
Discharge Summary Admission Date Nov 08, 2017 at 14:13 Discharge Date: Nov 12, 2017 Admitting Diagnosis DKA (1) Diabetic ketoacidosis ICD Code: E13.10 - Other specified diabetes mellitus with ketoacidosis without coma Status: Acute (2) Uncontrolled diabetes mellitus ICD Code: E11.65 - Type 2 diabetes mellitus with hyperglycemia (3) Leukocytosis ICD Code: D72.829 - Elevated white blood cell count, unspecified Procedures No procedures Brief History - From Admission HPI This is a 27-year-old female that presented to the ED with altered mental status. Laboratory and imaging studies revealed a significant leukocytosis and a beta hydroxybutyrate elevation of 10.93 the patient's glucose level was noted to be 444 and lactate level of 4.9.. The patient was bolused in the ED with 4 L of normal saline. An insulin drip was initiated in the ED.Upon my evaluation of the patient, easily arousable, opening eyes tracking but not responding to questions. Family at bedside,no history of diabetes per their report. The patient was admitted to ICU. ABG is pending. History PFSH Past Medical History Immunizations Current: Yes ?: Unknown Social History Alcohol Use: No Tobacco Use: No Substance Use: No Allergies-Medications Allergies-Medications (Allergen,Severity, Reaction): Coded Allergies: bee venom protein (honey bee) (Verified Allergy, Severe, Anaphylaxis, 10/25) Reported Meds & Prescriptions Reported Meds & Active Scripts Active Ibuprofen 800 Mg Tab 800 Mg PO Q8H PRN Robaxin (Methocarbamol) 500 Mg Tab 500 Mg PO QID PRN CBC/BMP: 11/10/17 0506 11/10/17 1638 Significant Findings Laboratory Tests Test 11/09/17 11:48 11/09/17 13:40 11/09/17 14:30 11/09/17 14:59 Creatinine 1.07 MG/DL (0.50-1.00) 1.11 MG/DL (0.50-1.00) Random Glucose 164 MG/DL (74-106) Calcium Level 7.5 MG/DL (8.5-10.1) 7.5 MG/DL (8.5-10.1) Phosphorus Level 0.2 MG/DL (2.5-4.9) Sodium Level 147 MEQ/L (136-145) 147 MEQ/L (136-145) Potassium Level 3.1 MEQ/L (3.5-5.1) 3.0 MEQ/L (3.5-5.1) Chloride Level 120 MEQ/L (98-107) 120 MEQ/L (98-107) Carbon Dioxide Level 13.1 MEQ/L (21.0-32.0) 15.7 MEQ/L (21.0-32.0) Estimat Glomerular Filtration Rate 61 ML/MIN (>89) 58 ML/MIN (>89) B-Hydroxybutyrate 2.40 MMOL/L (0.00-0.39) White Blood Count 28.8 TH/MM3 (4.0-11.0) Neutrophils (%) (Auto) 89.9 % (16.0-70.0) Lymphocytes (%) (Auto) 3.3 % (9.0-44.0) Neutrophils # (Auto) 25.9 TH/MM3 (1.8-7.7) Lymphocytes # (Auto) 0.9 TH/MM3 (1.0-4.8) Monocytes # (Auto) 1.9 TH/MM3 (0-0.9) Blood Gas HCO3 12 mmol/L (22-26) Blood Gas Base Excess -13.2 mmol/L (-2-2) Arterial Blood pH 7.34 (7.380-7.420) Arterial Blood Partial Pressure CO2 22 mmHg (38-42) Arterial Blood Partial Pressure O2 152 mmHg (61-120) Blood Gas Hemoglobin 11.6 G/DL (12.0-16.0) Test 11/09/17 17:50 11/10/17 05:06 11/10/17 16:38 11/11/17 14:17 Creatinine 1.15 MG/DL (0.50-1.00) 1.22 MG/DL (0.50-1.00) 1.34 MG/DL (0.50-1.00) Random Glucose 181 MG/DL (74-106) 185 MG/DL (74-106) 256 MG/DL (74-106) Calcium Level 8.0 MG/DL (8.5-10.1) 7.5 MG/DL (8.5-10.1) 7.8 MG/DL (8.5-10.1) Chloride Level 118 MEQ/L (98-107) 115 MEQ/L (98-107) 113 MEQ/L (98-107) Carbon Dioxide Level 10.7 MEQ/L (21.0-32.0) 14.7 MEQ/L (21.0-32.0) 16.8 MEQ/L (21.0-32.0) Anion Gap 16 MEQ/L (5-15) Estimat Glomerular Filtration Rate 56 ML/MIN (>89) 52 ML/MIN (>89) 47 ML/MIN (>89) B-Hydroxybutyrate 5.56 MMOL/L (0.00-0.39) 2.69 MMOL/L (0.00-0.39) 1.14 MMOL/L (0.00-0.39) White Blood Count 16.0 TH/MM3 (4.0-11.0) Red Blood Count 3.36 MIL/MM3 (4.00-5.30) Hemoglobin 10.6 GM/DL (11.6-15.3) Hematocrit 29.6 % (35.0-46.0) Platelet Count 120 TH/MM3 (150-450) Neutrophils (%) (Auto) 79.5 % (16.0-70.0) Monocytes (%) (Auto) 8.6 % (0.0-8.0) Neutrophils # (Auto) 12.8 TH/MM3 (1.8-7.7) Monocytes # (Auto) 1.4 TH/MM3 (0-0.9) Phosphorus Level 1.0 MG/DL (2.5-4.9) Potassium Level 3.1 MEQ/L (3.5-5.1) Imaging Last Impressions Maxillofacial CT 11/09/17 0000 Signed Impressions: CONCLUSION: 1. No acute findings. Abdomen/Pelvis CT 11/09/17 0000 Signed Impressions: CONCLUSION: 1. No acute findings within the abdomen. Small bilateral pleural effusions wit h basilar airspace disease which may represent pneumonia. 2. Mild anasarca. Mild constipation. Hyde catheter in bladder. 2.6 cm right a dnexal cyst. Chest X-Ray 11/08/17 1225 Signed Impressions: CONCLUSION: No acute cardiopulmonary findings. PE at Discharge GENERAL: Very pleasant young female, appears in nad. CARDIOVASCULAR: Regular rate and rhythm. RESPIRATORY: No accessory muscle use. Clear to auscultation. Breath sounds equal bilaterally. GASTROINTESTINAL: Abdomen soft, non-tender, nondistended. Hepatic and splenic margins not palpable. MUSCULOSKELETAL: Extremities without clubbing, cyanosis, or edema. No obvious deformities. NEUROLOGICAL: Awake and alert. No obvious cranial nerve deficits. Motor grossly within normal limits. Five out of 5 muscle strength in the arms and legs. Normal speech. PSYCHIATRIC: Appropriate mood and affect; insight and judgment normal. Hospital Course This is a 27-year-old female DKA coma, with severe electrolyte abnormalities. Clinically improved Neuro Metabolic encephalopathy. Resolved Neuro checks Avoid sedatives Tylenol 650 mg every 6 hours for pain and/or temperature greater than 101 Respiratory: Maintain O2 saturation greater than 92% O2 as need Duo nebs every 4 hours as needed for wheezing Cardiovascular: Telemetry sinus rhythm Maintain map greater than 65mmHG Renal: d/c hyde. -- Strict I/Os FEN/GI: diabetic diet. Obtain hemoglobin A1c elevated at 13 Normal Saline 200cc/hr Monitor BMP q 4hr per protocoll Electrolyte replacement per DKA protocol Heme/ID: Leukocytosis Obtain blood ,urine, sputum culture ntd No obvious signs of infection upon examination, but multiple carious dentition Endocrine: New-onset uncontrolled diabetes mellitus with hemoglobin A1c of 13 DKA Severe Metabolic Acidosis 2/2 DKA- resolving. Unable gap is closed SQ insulin Levemir simulation educator Dietitian consult and also Prophylaxis: GI Prophylaxis Famotidine 20mg BID DVT Prophylaxis: SCDs / Heparin 5000u BID Lines:PIV's x 2. Patient improved, she is able to tolerate food, ambulates without any problems. simulation educator comfortable to self inject insulin. Also adviced pt and family for free DM education at [facility]. Patient is dc in stable condition to / fu with pcp and consultants as OP. Pt Condition on Discharge: Stable Discharge Disposition: Discharge Home Discharge Time: > 30 minutes Discharge Instructions DIET: Follow Instructions for: Diabetic Diet Activities you can perform: Regular-No Restrictions Follow up Referrals: Diabetic Education Endocrinology PCP Follow-up New Medications: Blood Glucose Monitoring W/Device (Glucocom Blood Glucose Mo W/Device) 1 Kit Kit KIT .XX DIRECTED for Blood Sugar Management, #1 Cefuroxime (Ceftin) 250 Mg Tab 250 MG PO BID for infection for 7 Days, #14 TAB Glucocom Test Strips (Glucocom Test Strips) 1 Simona Simona EA .XX DIRECTED for Blood Sugar Management, #1 Insulin Aspart Inj (Novolog Inj) 1,000 Unit/10 Ml Vial 1-9 UNITS SQ ACHS for Blood Sugar Management, #10 ML 0 Refills Max dose at bedtime:( )units; sugars less than 70,(0)units; sugars 150-199,(1) unit; sugars 200-249,(3) units; sugars 250-299,(5) units; sugars 300-349,(7) units; sugars greater than 349,(9) units Insulin Syringe/U-100/31G X 5/16" 1 ml (Insulin Syringe/U-100/31G X 5/16" 1 ml) 31 Gauge X 5/16" Mis EA .XX DIRECTED for Blood Sugar Management, #1 0 Refills Lactobacillus Acidophilus (Lactinex) 1 Chew 1 TAB CHEW DAILY for Nutritional Supplement, #30 TAB 0 Refills Lancets (Lancets) 1 Mis Mis EA .XX DIRECTED for Blood Sugar Management, #1 0 Refills Parenteral Therapy Supplies (Sharpsafety Sharps Contai) 1 Mis Mis EA .XX DIRECTED, #1 0 Refills Insulin Human Isophane-Regular 70-30 Inj (Novolin 70-30 Inj) 1,000 Unit/10 Ml Vial 7 UNITS SQ BID@08,17 for Blood Sugar Management, #60 INJECTION Continued Medications: Ibuprofen (Ibuprofen) 800 Mg Tab 800 MG PO Q8H PRN for Pain/Inflammation, #30 TAB 0 Refills Methocarbamol (Robaxin) 500 Mg Tab 500 MG PO QID PRN for MUSCLE SPASM, #20 TAB 0 Refills Migdalia Banks MD Nov 12, 2017 09:46
[2017-11-12] MEDS ORDERED: CEFU1TAB18 PO (09:52)
[2017-11-12] MEDS ORDERED: LACTCHW3 CHEW (09:52)
[2017-11-12 13:31] LABS: AUTOMATED NEUTROPHIL # 3.1 TH/MM3 (1.8-7.7); BASOPHIL % 0.4 % (0.0-2.0); EOSINOPHIL # 0.3 TH/MM3 (0-0.4); EOSINOPHIL % 4.1 % (0.0-4.0); HEMATOCRIT 29.9 % (35.0-46.0); HEMOGLOBIN 10.7 GM/DL (11.6-15.3); LYMPH % 36.1 % (9.0-44.0); LYMPHOCYTE # 2.5 TH/MM3 (1.0-4.8); MEAN CELL VOLUME 88.1 FL (80.0-100.0); MEAN CORPUSCULAR HEMOGLOBIN 31.6 PG (27.0-34.0); MEAN CORPUSCULAR HGB CONC 35.9 % (32.0-36.0); MEAN PLATELET VOLUME 9.6 FL (7.0-11.0); MONO % 14.1 % (0.0-8.0); NEUT % 45.3 % (16.0-70.0); PLATELET COUNT 174 TH/MM3 (150-450); RED BLOOD COUNT 3.39 MIL/MM3 (4.00-5.30); RED CELL DISTRIBUTION WIDTH 12.9 % (11.6-17.2); WHITE BLOOD COUNT 6.8 TH/MM3 (4.0-11.0)
[2017-11-12 13:33] LABS: BICARBONATE 21.4 MEQ/L (21.0-32.0); CALCIUM 7.9 MG/DL (8.5-10.1); CREATININE 1.21 MG/DL (0.50-1.00); PHOSPHORUS 1.9 MG/DL (2.5-4.9)
--- NOTE | 2017-11-12 14:16 | HHI.PR ---
Subjective Remarks Feels much better. He is ambulating tingling. Denies any nausea or vomiting no diarrhea constipation. She is tolerating food. Feels Comfortable to go home. Learning how to self inject insulin. Objective Vitals Vital Signs Date Time Temp Pulse Resp B/P (MAP) Pulse Ox O2 Delivery O2 Flow Rate FiO2 11/12/17 14:00 79 11/12/17 14:00 86 11/12/17 12:00 98.6 79 115 131/86 (101) 99 11/12/17 12:00 79 11/12/17 10:00 93 11/12/17 08:00 71 11/12/17 08:00 98.4 71 62 125/81 (96) 96 11/12/17 06:00 77 11/12/17 04:00 98.3 81 22 128/85 (99) 100 11/12/17 04:00 81 11/12/17 02:00 84 11/12/17 00:00 83 11/12/17 00:00 98.3 83 22 119/87 (98) 100 11/11/17 22:00 81 11/11/17 20:20 99 21 11/11/17 20:00 88 11/11/17 20:00 98.3 88 20 133/83 (100) 99 11/11/17 18:00 77 11/11/17 16:00 97.9 97 60 130/73 (92) 99 11/11/17 16:00 97 I/O 11/11/17 11/11/17 11/11/17 11/12/17 11/12/17 11/12/17 07:00 15:00 23:00 07:00 15:00 23:00 Intake Total 650 ml 700 ml 1650 ml Output Total 602 ml Balance 48 ml 700 ml 1650 ml Intake Oral 300 ml 400 ml 300 ml IV Total 350 ml 300 ml 1350 ml Output Urine Total 600 ml Stool Total 2 ml # Voids 2 4 3 # Bowel Movements 2 2 0 # Sanitary Pads 1 Pads 1 Pads 1 Pads 1 Pads 1 Pads 1 Pads Result Diagram: 11/12/17 1214 11/12/17 1214 Imaging Last Impressions Maxillofacial CT 11/09/17 0000 Signed Impressions: CONCLUSION: 1. No acute findings. Abdomen/Pelvis CT 11/09/17 0000 Signed Impressions: CONCLUSION: 1. No acute findings within the abdomen. Small bilateral pleural effusions wit h basilar airspace disease which may represent pneumonia. 2. Mild anasarca. Mild constipation. Hyde catheter in bladder. 2.6 cm right a dnexal cyst. Chest X-Ray 11/08/17 1225 Signed Impressions: CONCLUSION: No acute cardiopulmonary findings. Objective Remarks GENERAL: Very pleasant young female, appears in nad. CARDIOVASCULAR: Regular rate and rhythm. RESPIRATORY: No accessory muscle use. Clear to auscultation. Breath sounds equal bilaterally. GASTROINTESTINAL: Abdomen soft, non-tender, nondistended. Hepatic and splenic margins not palpable. MUSCULOSKELETAL: Extremities without clubbing, cyanosis, or edema. No obvious deformities. NEUROLOGICAL: Awake and alert. No obvious cranial nerve deficits. Motor grossly within normal limits. Five out of 5 muscle strength in the arms and legs. Normal speech. PSYCHIATRIC: Appropriate mood and affect; insight and judgment normal. A/P Assessment and Plan This is a 27-year-old female DKA coma, with severe electrolyte abnormalities. Clinically improved Neuro Metabolic encephalopathy. Resolved Neuro checks Avoid sedatives Tylenol 650 mg every 6 hours for pain and/or temperature greater than 101 Respiratory: Maintain O2 saturation greater than 92% O2 as need Duo nebs every 4 hours as needed for wheezing Cardiovascular: Telemetry sinus rhythm Maintain map greater than 65mmHG Renal: d/c hyde. -- Strict I/Os FEN/GI: diabetic diet. Obtain hemoglobin A1c elevated at 13 Normal Saline 200cc/hr Monitor BMP q 4hr per protocoll Electrolyte replacement per DKA protocol Heme/ID: Leukocytosis Obtain blood ,urine, sputum culture No obvious signs of infection upon examination, but multiple carious dentition Endocrine: New-onset uncontrolled diabetes mellitus with hemoglobin A1c of 13 DKA Severe Metabolic Acidosis 2/2 DKA- resolving. 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 DC plan: DC when improved, tolerates food and lytes normal Migdalia Banks MD Nov 12, 2017 14:16
[2017-11-12] MEDS ORDERED: POTASSIUM PHOSPHATE MONOBASIC 500 MG TAB PO ONE (14:45)
[2017-11-12] MEDS ORDERED: POTASSIUM BICARBONATE 25 MEQ EFFERVESCENT TAB PO ONE (14:45)
[2017-11-12] MEDS ORDERED: INSULIN HUMAN NPH/R 70/30 1,000 UNITS/10 ML VIAL SQ SCH (17:00)
[2017-11-12] MEDS ORDERED: FAMOTIDINE 20 MG TAB PO SCH (21:00)
--- NOTE | 2017-11-14 11:16 | PQ ---
Physician Query Response Document PATIENT: DIPAK VASQUEZ : 1990 ADMIT DATE: 11/08/2017 2:13 PM DISCH DATE: 11/12/2017 6:30 PM RESPONDING PROVIDER #: [email or web address] QUERY TEXT: Conflicting Documentation Clarification A single mention or documentation of multiple diagnoses for the same clinical presentation appears in the record. Please clarify the diagnosis/diagnoses: Diabetes Mellitus type 2, new onset-with coma or without? (Patient described as easily arousable on admission exam). Please also document if the condition is: -- Confirmed and current -- Confirmed, treated and resolved -- Ruled out -- Other, please specify If you have any additional questions/comments and/or concerns, please do not hesitate to reach out to the [facility] Coding Hotline, Ext. [phone]. The patient's Clinical Indicators include: H 2) Diabetic ketoacidosis ICD Code: E13.10 - Other specified diabetes mellitus with ketoacidosis without coma Status: Acute Assessment : This is a 27-year-old female DKA coma, with severe electrolyte abnormalities H ED Report documents: Narrative Course : This patient presents to us with acutely altered mental status (no documentation of coma). In Discharge Summary: Discharge Diagnosis list at top of report: (1) Diabetic ketoacidosis ICD Code: E13.10 - Other specified diabetes mellitus with ketoacidosis without coma Status: Acute (2) Uncontrolled diabetes mellitus ICD Code: E11.65 - Type 2 diabetes mellitus with hyperglycemia Hospital Course: This is a 27-year-old female DKA coma, with severe electrolyte abnormalities. Query created by: Lesley Martinez on 11/14/2017 11:07 AM RESPONSE TEXT: Patient has uncontrolled DM with HGB A1c of 13. She presented with diabetic ketoacidosis with elevate d AG and DKA coma. Electronically signed by: Migdalia Banks MD 11/14/2017 11:11 AM
== END 2017-11-12 18:30 | disposition home or self-care (01) | DRG 637 ==
LOC: NEPE 12:18 → NEDA 14:13 → HIME 18:10
PROVIDERS: ADMIT Hospitalist; ATTEND Hospitalist
DX: E11.10 Type 2 diabetes mellitus with ketoacidosis without coma (principal); G93.41 Metabolic encephalopathy; D72.829 Elevated white blood cell count, unspecified; K02.9 Dental caries, unspecified
CPT/HCPCS: 36600; 51702; 70486; 71045; 74176; 80048; 80053; 80307; 81001; 82010; 82805; 82948; 83036; 83605; 83735; 84100; 84155; 84484; 85007; 85025; 85027; 87040; 87641; 93005; 96360; J0456; J1644; J1815; J1817; J2543; J3475; J3480; J7030; J7042; J7050; J7120